=== PATIENT | female | born 1940 | race Asian ===

== ENCOUNTER 2020-02-18 11:12 | Emergency (ER) | payer BC, MEDICARE ==
[~2020-02-18] VITALS: Ht 152.4 cm; Wt 58.7 kg
[2020-02-18] MEDS ORDERED: ASPIRIN 81 MG TABLET CHEW PO ONE (12:00)
[2020-02-18] MEDS ORDERED: ASPIRIN 81 MG TABLET CHEW ONE (12:03)
--- NOTE | 2020-02-18 12:10 | NUR ---
Break RN note: Pt resting in bed, NADN, denies needs. Pt medicated per MAR. Continuous heart monitor applied, all safety measures observed. Dr. Alfonso at bedside to speak with pt.
[2020-02-18 12:11] LABS: BASOPHILS % (AUTO) 1 % (0-1); EOSINOPHILS % (AUTO) 2 % (1-7); LYMPHOCYTES % (AUTO) 23 % (22-44); MEAN CORPUSCULAR HEMOGLOBIN 27.1 pg (27.0-34.8); MEAN CORPUSCULAR HGB CONC 32.2 g/dL (32.4-35.8); MEAN PLATELET VOLUME 8.6 fL (7.4-10.4); MONOCYTES % (AUTO) 13 % (2-9); NEUTROPHILS % (AUTO) 61 % (42-75); PLATELET COUNT 302 x10^3/uL (130-400); RED BLOOD COUNT 5.01 x10^6/uL (3.82-5.3); RED CELL DISTRIBUTION WIDTH 15.5 % (9.6-15.2)
[2020-02-18 12:13] LABS: MD NO
[2020-02-18 12:21] LABS: ANION GAP 3 mmol/L (5-15); CALCIUM 9.6 mg/dL (8.5-10.1); CHLORIDE 106 mmol/L (98-107); CREATININE 0.73 mg/dL (0.55-1.02)
[2020-02-18 12:24] LABS: TROPONIN I < 0.015 ng/mL (0.000-0.045)
[2020-02-18 13:04] VITALS: BP 151/75
== END 2020-02-18 13:06 | disposition home or self-care (01) ==
LOC: ED 12:28
DX: S29.011A Strain of muscle and tendon of front wall of thorax, initial encounter (principal); R94.31 Abnormal electrocardiogram [ECG] [EKG]; Z85.3 Personal history of malignant neoplasm of breast; X58.XXXA Exposure to other specified factors, initial encounter; Y93.89 Activity, other specified; Y92.89 Other specified places as the place of occurrence of the external cause; Y99.8 Other external cause status
CPT/HCPCS: 36415; 71045; 80048; 82040; 84484; 85025; 93005; 99285; 99291

== ENCOUNTER 2020-05-16 16:30 | Inpatient (IN) | payer MEDICARE ==
[~2020-05-16] VITALS: Ht 154.9 cm; Wt 59.3 kg
[2020-05-16] MEDS ORDERED: SODIUM CHLORIDE FLUSH 10ML SYR IVF ONE (17:30)
[2020-05-16 18:06] LABS: ALBUMIN 3.8 g/dL (3.4-5.0); ANION GAP 5 mmol/L (5-15); BASOPHILS % (AUTO) 1 % (0-1); CHLORIDE 106 mmol/L (98-107); CREATININE 0.81 mg/dL (0.55-1.02); EOSINOPHILS % (AUTO) 3 % (1-7); LYMPHOCYTES % (AUTO) 27 % (22-44); MEAN CORPUSCULAR HEMOGLOBIN 28.7 pg (27.0-34.8); MEAN CORPUSCULAR HGB CONC 33.4 g/dL (32.4-35.8); MEAN PLATELET VOLUME 8.4 fL (7.4-10.4); MONOCYTES % (AUTO) 14 % (2-9); NEUTROPHILS % (AUTO) 55 % (42-75); PLATELET COUNT 265 x10^3/uL (130-400); RED BLOOD COUNT 4.65 x10^6/uL (3.82-5.3); RED CELL DISTRIBUTION WIDTH 16.9 % (9.6-15.2)
[2020-05-16 18:07] LABS: MD NO
--- NOTE | 2020-05-16 19:06 | NUR ---
PORT ACCESSED BY SELENA RN, PT TO CT.
--- NOTE | 2020-05-16 19:19 | NUR ---
REPORT TO SEDA, TRANSFER OF CARE AT THIS TIME.
--- NOTE | 2020-05-16 20:25 | NUR ---
PATIENT AMBULATED TO RESTROOM WITH MINIMAL ASSISTANCE, RETURNED TO ROOM WITHOUT INCIDENT. FAMILY AT BEDSIDE, NAD, VSS, CALL CORRAL WITHIN REACH, WILL CONTINUE TO MONITOR.
--- NOTE | 2020-05-16 21:08 | NUR ---
PATIENT AMBULATED TO RESTROOM WITH MINIMAL ASSISTANCE, RETURNED TO ROOM WITHOUT INCIDENT, NAD, VSS WILL CONTINUE TO MONITOR
[2020-05-16] MEDS ORDERED: APIXABAN 5 MG TABLET ONE (21:30)
[2020-05-16] MEDS ORDERED: APIXABAN 5 MG TABLET PO ONE (21:30)
[2020-05-16] MEDS ORDERED: SODIUM CHLORIDE FLUSH 10ML SYR IVF PRN (22:30)
[2020-05-16] MEDS ORDERED: MORPHINE SULFATE 4 MG/ML, 1ML IVPush PRN ×2 (22:30)
[2020-05-16] MEDS ORDERED: ONDANSETRON 2MG/ML, 2ML IVPush PRN (22:30)
--- NOTE | 2020-05-16 22:55 | NUR ---
REPORT TO LAURENT GUTIERREZ
[2020-05-16] MEDS ORDERED: DOCUSATE 100 MG CAPSULE PO PRN (23:30)
[2020-05-16] MEDS ORDERED: MELATONIN 5 MG TABLET PO PRN (23:30)
[2020-05-16 23:49] LABS: TROPONIN I < 0.015 ng/mL (0.000-0.045)
--- NOTE | 2020-05-16 23:57 | NUR ---
REPORT TO ANDREW GUTIERREZ
[2020-05-17 00:30] VITALS: BP 177/75
[2020-05-17 00:39] VITALS: BP 152/85
[2020-05-17] MEDS ORDERED: ALBUTEROL HFA 90 MCG/SPRAY INH PRN (01:00)
[2020-05-17] MEDS ORDERED: OMNIPAQUE 350 MG/ML, 100ML BOTTLE ONE (01:07)
[2020-05-17 05:08] LABS: BASOPHILS % (AUTO) 1 % (0-1); EOSINOPHILS % (AUTO) 2 % (1-7); LYMPHOCYTES % (AUTO) 23 % (22-44); MEAN CORPUSCULAR HEMOGLOBIN 28.8 pg (27.0-34.8); MEAN CORPUSCULAR HGB CONC 33.6 g/dL (32.4-35.8); MEAN PLATELET VOLUME 8.6 fL (7.4-10.4); MONOCYTES % (AUTO) 14 % (2-9); NEUTROPHILS % (AUTO) 59 % (42-75); PLATELET COUNT 249 x10^3/uL (130-400); RED BLOOD COUNT 4.56 x10^6/uL (3.82-5.3); RED CELL DISTRIBUTION WIDTH 16.8 % (9.6-15.2)
[2020-05-17 05:11] LABS: MD NO
[2020-05-17 05:19] LABS: ANION GAP 3 mmol/L (5-15); CALCIUM 9.1 mg/dL (8.5-10.1); CHLORIDE 108 mmol/L (98-107); CREATININE 0.65 mg/dL (0.55-1.02)
[2020-05-17 05:29] LABS: TROPONIN I < 0.015 ng/mL (0.000-0.045)
[2020-05-17] MEDS: APIXABAN 5 MG TABLET PO SCH ×2 (08:50→20:56)
[2020-05-17 09:00] VITALS: BP 155/72
[2020-05-17 11:49] LABS: TROPONIN I < 0.015 ng/mL (0.000-0.045)
[2020-05-17 14:30] VITALS: BP 143/73
[2020-05-17] MEDS ORDERED: HYDROmorphone 1 MG/ML, 1ML INJ IM PRN (17:00)
[2020-05-17] MEDS ORDERED: CAPE500T24 PO (17:04)
[2020-05-17] MEDS ORDERED: HYDROmorphone 2 MG/ML, 1ML ONE (17:18)
[2020-05-17 18:00] LABS: FREE T4 (FREE THYROXINE) 1.09 ng/dL (0.76-1.46)
[2020-05-17 19:30] VITALS: BP 136/72
[2020-05-18 00:35] VITALS: BP 119/73
[2020-05-18 07:18] VITALS: BP 112/62
[2020-05-18] MEDS: APIXABAN 5 MG TABLET PO SCH ×2 (08:58→20:56)
[2020-05-18] MEDS ORDERED: OMNIPAQUE 350 MG/ML, 100ML BOTTLE ONE (13:27)
[2020-05-18 13:47] VITALS: BP 170/78
[2020-05-18 19:14] VITALS: BP 140/82
[2020-05-19 01:08] VITALS: BP 132/82
[2020-05-19 06:59] VITALS: BP 142/83
[2020-05-19] MEDS: APIXABAN 5 MG TABLET PO SCH ×2 (07:18→21:00)
[2020-05-19 12:07] VITALS: BP 132/74
[2020-05-19] MEDS: MINERA CRM, 60GM TP SCH ×2 (14:26→21:00)
[2020-05-19 20:42] VITALS: BP 146/75
[2020-05-20] MEDS: ACETAMINOPHEN 325 MG TABLET PO PRN ×2 (00:50→18:26)
[2020-05-20 02:05] VITALS: BP 135/72
[2020-05-20 05:03] LABS: ALBUMIN 3.3 g/dL (3.4-5.0); ANION GAP 7 mmol/L (5-15); CALCIUM 8.3 mg/dL (8.5-10.1); CHLORIDE 108 mmol/L (98-107)
[2020-05-20 05:08] LABS: ALANINE AMINOTRANSFERASE 35 U/L (12-78); ALKALINE PHOSPHATASE 75 U/L (45-117); BILIRUBIN,TOTAL 0.5 mg/dL (0.2-1.0); CREATININE 0.64 mg/dL (0.55-1.02); TOTAL PROTEIN 6.7 g/dL (6.4-8.2)
[2020-05-20 07:24] VITALS: BP 113/67
[2020-05-20] MEDS: APIXABAN 5 MG TABLET PO SCH ×2 (07:59→21:10)
[2020-05-20] MEDS ORDERED: MIDAZOLAM 1 MG/ML, 5ML ONE (09:10)
[2020-05-20] MEDS ORDERED: FENTANYL PF 100 MCG/2ML ONE (09:10)
[2020-05-20] MEDS ORDERED: FLUMAZENIL 0.1 MG/1 ML, 5ML ONE (09:11)
[2020-05-20] MEDS ORDERED: NALOXONE 1 MG/ML, 2ML ONE (09:11)
[2020-05-20] MEDS: MINERA CRM, 60GM TP SCH ×2 (10:49→21:11)
[2020-05-20 13:37] VITALS: BP 128/60
[2020-05-20 19:49] VITALS: BP 146/72
[2020-05-21 00:46] VITALS: BP 130/78
[2020-05-21 07:19] VITALS: BP 112/70
[2020-05-21] MEDS ORDERED: ACET325T26 PO (08:56)
[2020-05-21] MEDS ORDERED: APIX5TAB PO (08:56)
[2020-05-21] MEDS ORDERED: TRAM50TA2 PO (08:56)
[2020-05-21] MEDS: MINERA CRM, 60GM TP SCH (09:00)
[2020-05-21] MEDS: APIXABAN 5 MG TABLET PO SCH (09:13)
[2020-05-21 12:35] VITALS: BP 127/70
== END 2020-05-21 15:37 | disposition home or self-care (01) | DRG 598 ==
LOC: ED 17:47 → EDIP 22:37 → UNDOADMIN 22:37 → EDIP 23:19 → 5SO 05-17 00:17 → 4NW 05-19 10:56 → DCLOUNGE 05-21 15:25
PROVIDERS: ADMIT Family Medicine; ATTEND Hospitalist
PROC: 0WB83ZX Excision of Chest Wall, Percutaneous Approach, Diagnostic (ICD-10-PCS; principal; 2020-05-20)
DX: C50.912 Malignant neoplasm of unspecified site of left female breast (principal); I82.B12 Acute embolism and thrombosis of left subclavian vein; J91.0 Malignant pleural effusion; D68.69 Other thrombophilia; F41.9 Anxiety disorder, unspecified; I89.0 Lymphedema, not elsewhere classified; E11.40 Type 2 diabetes mellitus with diabetic neuropathy, unspecified; M19.90 Unspecified osteoarthritis, unspecified site; Z90.12 Acquired absence of left breast and nipple; Z79.01 Long term (current) use of anticoagulants; Z90.710 Acquired absence of both cervix and uterus; Z90.49 Acquired absence of other specified parts of digestive tract; Z80.3 Family history of malignant neoplasm of breast; Z79.899 Other long term (current) drug therapy
CPT/HCPCS: 20206; 36415; 71260; 74177; 77012; 78306; 80048; 80053; 82040; 84439; 84443; 84481; 84484; 85025; 88305; 88341; 88342; 88360; 93005; 93308; G0378; J2250; J3010; Q9967; A9503; C9898; J2310